=== PATIENT | male | born 1975 | race Caucasian/White ===

== ENCOUNTER 2019-05-20 11:43 | Emergency (ER) | payer OTHER ==
[~2019-05-20] VITALS: Ht 182.9 cm; Wt 127.0 kg
--- OUTSIDE RECORDS SUMMARY | 2019-05-20 11:48 | XMS ---
PreManage Notification: EDITH ROA Security Manager Control Events No recent Security Events currently on file CRITERIA MET - PDM CARE PROVIDERS SARA BHANDARI [facility] PHONE: Unknown [facility] PHONE: Unknown Justyn has no Care Guidelines for this patient. Zahra VISIT COUNT (12 MO.) [address] [facility] TOTAL 4 NOTE: Visits indicate total known visits. ED/UCC VISIT TRACKING (12 MO.) 05/20/2019 11:45 [facility] TYPE: Emergency COMPLAINT: - LOWER ABD PAIN,TESTICULAR PAIN,BUTTOCKS PAIN 02/26/2019 20:07 [facility] [place] TYPE: Emergency DIAGNOSES: - BACK AND SIDE PAIN - Fatty (change of) liver, not elsewhere classified - Pain in thoracic spine - Essential (primary) hypertension 02/13/2019 06:46 [facility] [place] TYPE: Emergency DIAGNOSES: - TOOTH ABSCESS FACIAL SWELLING - Dental caries, unspecified 11/23/2018 11:21 [facility] [place] TYPE: Emergency DIAGNOSES: - FLU LIKE SYMPTOMS - Acute upper respiratory infection, unspecified - Otitis media, unspecified, unspecified ear INPATIENT VISIT TRACKING (12 MO.) No inpatient visits to display in this time frame [email or web address]
[2019-05-20] MEDS ORDERED: CIPRO500 MG PO (16:08)
[2019-05-20] MEDS ORDERED: FLAGYL500 MG PO (16:08)
[2019-05-20] MEDS ORDERED: ULTRAM50 MG PO (16:09)
== END 2019-05-20 16:20 | disposition home or self-care (01) ==
LOC: ED 11:43
DX: K57.92 Diverticulitis of intestine, part unspecified, without perforation or abscess without bleeding (principal); I10 Essential (primary) hypertension; F17.200 Nicotine dependence, unspecified, uncomplicated; Z88.1 Allergy status to other antibiotic agents; Z88.8 Allergy status to other drugs, medicaments and biological substances
CPT/HCPCS: 74177; 80053; 81001; 83690; 85025; 99284-25; 99406; J1885; J2405; J2550; Q9967